=== PATIENT | female | born 1995 | race Caucasian/White ===

== ENCOUNTER 2016-08-28 22:31 | Emergency (ER) | payer MEDICAID ==
[2014-07-08 04:25] VITALS: BMI 33.0
[~2016-08-28 22:31] MED LIST: MACROBID100 MG PO
== END 2016-08-28 23:45 | disposition home or self-care (01) ==
LOC: D.ER 22:31
DX: L76.82 Other postprocedural complications of skin and subcutaneous tissue (principal); J45.909 Unspecified asthma, uncomplicated; E78.5 Hyperlipidemia, unspecified; F17.200 Nicotine dependence, unspecified, uncomplicated